=== PATIENT | female | born 1965 | race Caucasian/White ===

== ENCOUNTER 2018-03-09 08:52 | Day surgery (SDC) | payer SELFPAY ==
[2018-03-06 13:13] VITALS: BMI 24.7
[2018-03-09] MEDS ORDERED: BACITRACIN 15 GM TUBE TOPICAL OINTMENT ONE (11:10)
[2018-03-09] MEDS ORDERED: LIDOCAINE 1%/EPI 1:100000 (20 ML MULTI DOSE VIAL) ONE ×3 (11:10→12:11)
[2018-03-09] MEDS ORDERED: LIDOCAINE HCL 1%, 10 MG/ML (20ML VIAL) ONE ×2 (11:10→11:11)
[2018-03-09] MEDS ORDERED: EPINEPHrine/PF 1 MG/1 ML (1:1,000) AMPULE ONE (11:10)
[2018-03-09] MEDS ORDERED: fentaNYL CITRATE 250 MCG/5 ML VIAL ONE (11:24)
[2018-03-09] MEDS ORDERED: MIDAZOLAM HCL 2 MG/2 ML SINGLE DOSE VIAL ONE (11:25)
[2018-03-09] MEDS ORDERED: PROPOFOL 20 ML ONE ×2 (11:25)
[2018-03-09] MEDS ORDERED: ONDANSETRON 4 MG/2 ML VIAL ONE ×2 (12:02→14:08)
[2018-03-09] MEDS ORDERED: ePHEDrine SULFATE 50 MG/1 ML AMPULE ONE (12:02)
[2018-03-09] MEDS ORDERED: ceFAZolin SODIUM 1 GM VIAL ONE (12:02)
[2018-03-09] MEDS ORDERED: DEXAMETHASONE SOD PHOSPHATE 4 MG/1 ML VIAL ONE (12:02)
[2018-03-09] MEDS ORDERED: LIDOCAINE HCL 2% JELLY (5 ML/TUBE) ONE (12:02)
[2018-03-09] MEDS ORDERED: LIDOCAINE 1%/EPI 1:100000 (50 ML MULTI DOSE VIAL) INF ONE (12:15)
[2018-03-09] MEDS ORDERED: ONDANSETRON 4 MG/2 ML VIAL IVPUSH PRN (14:29)
[2018-03-09] MEDS ORDERED: oxyCODONE HCL 5 MG TABLET PO PRN (14:29)
[2018-03-09] MEDS ORDERED: LACTATED RINGERS SOLUTION 1,000 ML IV SCH (14:30)
--- NOTE | 2018-03-09 14:35 | OP ---
Operative Note - Note: Operative Date: 03/09/18 Pre-Operative Diagnosis: cosmetic deformity of breasts with ptosis. Lipodystrophy Operation: Revsion mastopexy with Morales pattern. Liposuction of abdomen,flanks and upper back/bra roll Post-Operative Diagnosis: Same as Pre-op Surgeon: Aime Sarkar Anesthesiologist/GLASS MAKER: Renzo Leblanc Anesthesia: General Specimens Removed: skin and tissue of both breasts Estimated Blood Loss (mls): 50 Drains & Tubes with Location: none
[2018-03-09] MEDS ORDERED: oxyCODONE HCL 5 MG TABLET ONE (15:58)
[2018-03-09 17:47] VITALS: BP 120/80; PULSE 76; TEMP 98.1
--- NOTE | 2018-03-10 11:39 | OP ---
DATE OF OPERATION: 03/09/2018 SURGEON: Moise Sarkar MD PREOPERATIVE DIAGNOSES: 1. Bilateral breast ptosis with asymmetry. 2. Lipodystrophy of the abdomen, flanks, and back. POSTOPERATIVE DIAGNOSES: 1. Bilateral breast ptosis with asymmetry. 2. Lipodystrophy of the abdomen, flanks, and back. OPERATIVE PROCEDURE: 1. Bilateral mastopexy reduction with Morales pattern. 2. Suction-assisted lipectomy of the abdomen, flanks, and back. OPERATIVE INDICATION: Patient is a 52-year-old white female who had previously undergone cosmetic surgery with mastopexy and abdominoplasty elsewhere and now presents with ptosis of her bilateral breasts and still lipodystrophy of her flanks, abdomen, and back. The risks and benefits of surgical versus nonsurgical alternatives as well as material complications of the procedure were described to the patient on multiple occasions preoperatively. She agreed to the planned procedure. OPERATIVE PROCEDURE IN DETAIL: Patient was taken to the operating room, and after induction of the supine position, both arms were extended and padded. Venodyne boots were placed, and the entire chest wall, abdomen, flanks, and posterior regions of the back were prepped with ChloraPrep solution over their entire extent. At this point, after allowing topical anesthesia and hemostasis with 1% local lidocaine anesthesia to the pattern which was drawn standing in the position preoperatively in the holding area for the Morales pattern reduction with the patient's knowledge and her daughter in attendance. After infiltration of the local and timeout, attention was turned to the breasts. The Morales pattern marking for reduction of skin envelope and a small amount of tissue for asymmetry was incised down through the skin to the subcutaneous tissue after the 42 nipple-areolar cutter was circumscribed around the nipple-areolar complexes. At this point, the areas were de-epithelialized in small blocks of tissue which were attached to the skin were then removed from the central portions of the breasts, creating a shaped lower pole. At this point, hemostasis was meticulously obtained throughout. Both breasts were treated exactly in the same fashion and then undermined to advance and close the skin, to tighten the breasts and lift the nipple into a new anatomic position. Copious irrigation and closure was then carried out with 2-0 Vicryl sutures in the deep tissue with approximation, 3-0 PDS in a deep dermal fashion, and a running subcuticular 4-0 V-Loc suture was placed on both breasts. Good viability of the nipple complex is achieved. Circumareolar incisions showed good viability and good contour, and attention was turned to the suction-assisted lipectomy. After infiltration of a dilute solution for the abdomen, flanks, and upper back/ bra area, a suction-assisted lipectomy was carried out with the MicroAire device, removing approximately 1200 mL of fatty material. Contour showed good symmetry bilaterally and the patient was then closed with interrupted sutures and sterile dressings were placed with Dermabond, Steri-Strips, a bra, and a binder. She tolerated the procedure well. She went to the recovery room in satisfactory condition. MOISE SARKAR M.D. LADAN/[id number] MTDD
--- NOTE | 2018-03-15 11:48 | PATH ---
Surgical Pathology Report Patient Name: SWATI MACHADO [facility]. Rec. #: [id number] /Age/Gender: 1965 (Age: 52) / F Account: [id number] Location: [facility] Taken: 03/09/2018 Received: 03/09/2018 Reported: 03/15/2018 Physicians: Aime Sarkar Specimen(s) Received A: RIGHT BREAST TISSUE B: LEFT BREAST TISSUE Clinical History Cosmetic Final Diagnosis A. BREAST TISSUE, RIGHT, EXCISION: SKIN AND FIBROADIPOSE TISSUE WITH NO PATHOLOGIC FINDINGS. B. BREAST TISSUE, LEFT, EXCISION: SKIN AND FIBROADIPOSE TISSUE WITH NO PATHOLOGIC FINDINGS. Electronically Signed Sonia Khan M.D. Gross Description A. Received in formalin labeled "right breast tissue," is a 49 g, 9.5 x 8.0 x 1.3 cm aggregate of gilbert, unremarkable skin with underlying soft tissue. Sectioning reveals unremarkable fibrous tissue. No lesions are identified. Clinical Product Manager sections are submitted in one cassette. B. Received in formalin labeled "left breast tissue," is a 54 g, 9.0 x 7.0 x 2.3 cm aggregate of unremarkable skin with underlying soft tissue. Sectioning reveals unremarkable fibrous tissue. No lesions are identified. Clinical Product Manager sections are submitted in one cassette. 03/12/201803/12/2018
== END 2018-03-09 17:47 | disposition home or self-care (01) ==
LOC: FASU 08:52
PROVIDERS: ATTEND Plastic Surgery
PROC: 0J073ZZ Alteration of Back Subcutaneous Tissue and Fascia, Percutaneous Approach (ICD-10-PCS; 2018-03-09)
PROC: 0H0V0ZZ Alteration of Bilateral Breast, Open Approach (ICD-10-PCS; principal; 2018-03-09 12:22)
PROC: 0J083ZZ Alteration of Abdomen Subcutaneous Tissue and Fascia, Percutaneous Approach (ICD-10-PCS; 2018-03-09 12:22)
DX: Z41.1 Encounter for cosmetic surgery (principal); N64.81 Ptosis of breast; E88.1 Lipodystrophy, not elsewhere classified
CPT/HCPCS: 88304-TC; 94760